=== PATIENT | male | born 2000 | race Caucasian/White ===

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

== ENCOUNTER → 2020-09-06 | Outpatient (CLI) | payer BC ==
[~2020-09-06] MED LIST changes: +OXC5T; -OXYC5TAB96
--- NOTE | 2020-09-06 18:48 | Diagnostic Imaging Report ---
PROCEDURE: CT pelvis without contrast. TECHNIQUE: Multiple contiguous axial images were obtained through the pelvis without the use of intravenous contrast. Sagittal and coronal reformations were performed. Auto Exposure Controls were utilized during the CT exam to meet ALARA standards for radiation dose reduction. INDICATION: Pelvic and left hip pain. Dislocated left hip had 3 screws placed a year ago. Recently started exercising and has pressure in that area. Possible avascular necrosis. FINDINGS: There is no evidence of avascular necrosis. No loose bodies are seen in the joint space. The screws extend less than 1 mm beyond the cortex. No joint effusion is present. Some osteophytes are seen off of the posterior acetabulum. The pelvic contents appear unremarkable. There is slightly increased stool in the colon. IMPRESSION: 1. The screws within the femoral head extends slightly beyond the cortex. 2. Small osteophyte is seen off of the posterior acetabulum. 3. There is no evidence of avascular necrosis. Dictated by: Dictated on workstation # [id number]
== END ==
LOC: RAD 16:15
PROVIDERS: ATTEND Orthopaedic Surgery
DX: M25.752 Osteophyte, left hip (principal); M24.852 Other specific joint derangements of left hip, not elsewhere classified; Z96.698 Presence of other orthopedic joint implants
CPT/HCPCS: 72192